=== PATIENT | male | born 1995 | race Caucasian/White ===

== ENCOUNTER 2018-04-08 20:24 | Observation (INO) | payer BC, OTHER ==
[~2018-04-08] VITALS: Ht 190.5 cm; Wt 116.0 kg
[2018-04-08 20:44] LABS: BASOPHILS % (AUTO) 0 % (0-10); EOSINOPHILS # (AUTO) 0.2 10^3/uL (0.0-0.3); EOSINOPHILS % (AUTO) 2 % (0-10); HEMATOCRIT 42 % (40-54); HEMOGLOBIN 15.1 G/DL (13.3-17.7); LYMPHOCYTES % (AUTO) 22 % (12-44); MEAN CORPUSCULAR HEMOGLOBIN 29 PG (25-34); MEAN CORPUSCULAR HGB CONC 36 G/DL (32-36); MEAN CORPUSCULAR VOLUME 82 FL (80-99); MEAN PLATELET VOLUME 10.1 FL (7.4-10.4); MONOCYTES # (AUTO) 0.9 X 10^3 (0.0-1.0); MONOCYTES % (AUTO) 10 % (0-12); NEUTROPHILS # (AUTO) 6.1 X 10^3 (1.8-7.8); NEUTROPHILS % (AUTO) 67 % (42-75); PLATELET COUNT 353 10^3/uL (130-400); RED BLOOD COUNT 5.16 10^6/uL (4.35-5.85); RED CELL DISTRIBUTION WIDTH 13.3 % (10.0-14.5); WHITE BLOOD COUNT 9.1 10^3/uL (4.3-11.0)
[2018-04-08 20:48] LABS: BILIRUBIN,URINE NEGATIVE (NEGATIVE); CLARITY,URINE SLIGHTLY CLOUDY; COLOR,URINE YELLOW; GLUCOSE, URINE (UA) NEGATIVE (NEGATIVE); KETONES,URINE 2+ (NEGATIVE); LEUKOCYTE ESTERASE ,URINE NEGATIVE (NEGATIVE); NITRITE,URINE NEGATIVE (NEGATIVE); PH,URINE 7 (5-9); PROTEIN,URINE NEGATIVE (NEGATIVE); UROBILINOGEN,URINE 4 MG/DL (NORMAL)
[2018-04-08 21:01] LABS: AMPHETAMINE SCREEN, URINE NEGATIVE (NEGATIVE); BARBITURATE SCREEN URINE NEGATIVE (NEGATIVE); BENZODIAZEPINES SCREEN URINE NEGATIVE (NEGATIVE); CANNABINOID SCREEN, URINE POSITIVE (NEGATIVE); COCAINE SCREEN URINE NEGATIVE (NEGATIVE); METHADONE STAT NEGATIVE (NEGATIVE); METHAMPHETAMINE SCREEN URINE S NEGATIVE (NEGATIVE); OPIATE SCREEN URINE NEGATIVE (NEGATIVE); OXYCODONE STAT NEGATIVE (NEGATIVE); PROPOXYPHENE STAT NEGATIVE (NEGATIVE); TRICYCLIC ANTIDEPRESSANTS SCRE NEGATIVE (NEGATIVE)
[2018-04-08 21:03] LABS: ALANINE AMINOTRANSFERASE 18 U/L (0-55); ALBUMIN 4.4 GM/DL (3.2-4.5); ALKALINE PHOSPHATASE 89 U/L (40-136); BILIRUBIN,TOTAL 0.6 MG/DL (0.1-1.0); BUN/CREATININE RATIO 15; CALCIUM 9.3 MG/DL (8.5-10.1); CARBON DIOXIDE 22 MMOL/L (21-32); CHLORIDE 106 MMOL/L (98-107); CREATININE SERUM 0.85 MG/DL (0.60-1.30); GFR ESTIMATED > 60; GLUCOSE 97 MG/DL (70-105); POTASSIUM 3.6 MMOL/L (3.6-5.0); SALICYLATE < 5.0 MG/DL (5.0-20.0); SODIUM 140 MMOL/L (135-145); TOTAL PROTEIN 7.6 GM/DL (6.4-8.2)
[2018-04-08 21:04] LABS: AMORPHOUS SEDIMENT,UR LARGE AMOR PHOSPHATE /LPF; BACTERIA,URINE NEGATIVE /HPF; RBC,URINE RARE /HPF; WBC,URINE 0-2 /HPF
[2018-04-08 21:05] LABS: ACETAMINOPHEN < 10 UG/ML (10-30)
[2018-04-08] MEDS ORDERED: FAMOTIDINE 20MG/2ML IV (PEPCID) IVP ONE (21:15)
[2018-04-08] MEDS ORDERED: ONDANSETRON 4 MG/2 ML (SDV) Z0FRAN IVP ONE (21:15)
[2018-04-08 21:22] LABS: TSH (THYROID ANALYZER) 0.91 UIU/ML (0.35-4.94)
--- NOTE | 2018-04-08 21:39 | ED Psychosocial ---
General Chief Complaint: Suicidal Ideation Risk Stated Complaint: OVERDOSE Nursing Triage Note: PT BROUHGT IN BY EMS WITH COMPLAINT OF SUICIDAL ATTEMPT. PT TOOK APPROXIMATELY 30-60 ZOLOFTS STARTING AT 1830 AND TOOK THEM AT INTERVALS. PT STATES HE HAS HAD THOUGHTS, BUT DECIDED TO KILL HIMSELF JACLYN AFTER GIRLFRIEND BROKE UP WITH HIM. PT STATES HE DOES HAVE PRIOR SUICIDE ATTEMPT. Source: patient, EMS Exam Limitations: no limitations History of Present Illness Date Seen by Provider: Apr 08, 2018 Time Seen by Provider: 20:26 Initial Comments This 22-year-old young man presents to the emergency room via EMS from a local hotel where he was staying on a business trip. He is from [place]. Patient has been struggling with depression and had a breakup with his girlfriend jaclyn. He then decided to overdose on his sertraline with intent to kill himself. EMS estimated he took somewhere between 30 and 60 tablets that were 50 mg strength. Ingestion started around 18:30 and continued in intervals until EMS arrived. Patient's girlfriend notified his sister who then apparently somehow notified emergency services. Patient admits to depression and intent to harm himself with the medications. He reports one prior episode of overdose when he was younger. He vomited and did not seek help when he overdosed that time. Vital signs were stable according to EMS. Patient is alert and oriented. He denies any other drug or alcohol use. He complains of minor stomach upset. Poison control was contacted by EMS. IV fluids were initiated based on the recommendations. EKG showed no gross abnormalities. Allergies and Home Medications Allergies Coded Allergies: No Known Drug Allergies (Unverified , 04/08/18) Patient Home Medication List Home Medication List Reviewed: Yes Review of Systems Constitutional: no symptoms reported EENTM: no symptoms reported Respiratory: no symptoms reported Cardiovascular: no symptoms reported Gastrointestinal: see HPI Genitourinary: no symptoms reported Musculoskeletal: no symptoms reported Skin: no symptoms reported Psychiatric/Neurological: See HPI Past Bcpanak-Fbxrfg-Yrqxiu Hx Patient Social History Alcohol Use: Occasionally Uses Recreational Drug Use: Yes Drug of Choice: MARIJUANA Smoking Status: Current Everyday Smoker Type Used: Cigarettes Recent Foreign Travel: No Contact w/Someone Who Travel: No Recent Infectious Disease Expo: No Recent Hopitalizations: No Physical Abuse: No Sexual Abuse: No Mistreated: No Fear: No Immunizations Up To Date Tetanus Booster (TDap): Unknown PED Vaccines UTD: Yes Seasonal Allergies Seasonal Allergies: No Past Medical History Surgeries: No Respiratory: Yes Asthma Cardiac: No Neurological: No Genitourinary: No Gastrointestinal: No Musculoskeletal: No Endocrine: No HEENT: No Cancer: No Psychosocial: Yes Depression Integumentary: No Blood Disorders: No Physical Exam Vital Signs - First Documented 04/08/18 20:26 Temp 98.0 Pulse 85 Resp 20 B/P (MAP) 138/87 (104) Pulse Ox 99 O2 Delivery Room Air Capillary Refill : Less Than 3 Seconds Height, Weight, BMI Height: 6'3.00" Weight: 240lbs. oz. 108.942014vy; BMI Method:Stated General Appearance: WD/WN, no apparent distress HEENT: PERRL/EOMI, normal ENT inspection, pharynx normal Neck: normal inspection Respiratory: lungs clear, normal breath sounds, no respiratory distress, no accessory muscle use Cardiovascular: regular rate, rhythm, no edema, no murmur Gastrointestinal: normal bowel sounds, non tender, soft Extremities: normal inspection, no pedal edema Neurologic/Psychiatric: call person II-XII nml as tested, alert, normal mood/affect, oriented x 3, other (mood depressed, admits to suicidal ideation) Appearance/Memory: appropriate appearance, appropriate insight Behavior/Eye Contact: cooperative, avoids eye contact Thoughts/Hallucinations: no apparent hallucination Skin: normal color, warm/dry Progress/Results/Core Measures Results/Orders Lab Results Laboratory Tests Test 04/08/18 20:34 04/08/18 20:42 Range/Units White Blood Count 9.1 4.3-11.0 10^3/uL Red Blood Count 5.16 4.35-5.85 10^6/uL Hemoglobin 15.1 13.3-17.7 G/DL Hematocrit 42 40-54 % Mean Corpuscular Volume 82 80-99 FL Mean Corpuscular Hemoglobin 29 25-34 PG Mean Corpuscular Hemoglobin Concent 36 32-36 G/DL Red Cell Distribution Width 13.3 10.0-14.5 % Platelet Count 353 130-400 10^3/uL Mean Platelet Volume 10.1 7.4-10.4 FL Neutrophils (%) (Auto) 67 42-75 % Lymphocytes (%) (Auto) 22 12-44 % Monocytes (%) (Auto) 10 0-12 % Eosinophils (%) (Auto) 2 0-10 % Basophils (%) (Auto) 0 0-10 % Neutrophils # (Auto) 6.1 1.8-7.8 X 10^3 Lymphocytes # (Auto) 2.0 1.0-4.0 X 10^3 Monocytes # (Auto) 0.9 0.0-1.0 X 10^3 Eosinophils # (Auto) 0.2 0.0-0.3 10^3/uL Basophils # (Auto) 0.0 0.0-0.1 10^3/uL Sodium Level 140 135-145 MMOL/L Potassium Level 3.6 3.6-5.0 MMOL/L Chloride Level 106 98-107 MMOL/L Carbon Dioxide Level 22 21-32 MMOL/L Anion Gap 12 5-14 MMOL/L Blood Urea Nitrogen 13 7-18 MG/DL Creatinine 0.85 0.60-1.30 MG/DL Estimat Glomerular Filtration Rate > 60 BUN/Creatinine Ratio 15 Glucose Level 97 70-105 MG/DL Calcium Level 9.3 8.5-10.1 MG/DL Corrected Calcium 9.0 8.5-10.1 MG/DL Magnesium Level 2.0 1.8-2.4 MG/DL Total Bilirubin 0.6 0.1-1.0 MG/DL Aspartate Amino Transf (AST/SGOT) 17 5-34 U/L Alanine Aminotransferase (ALT/SGPT) 18 0-55 U/L Alkaline Phosphatase 89 40-136 U/L Total Protein 7.6 6.4-8.2 GM/DL Albumin 4.4 3.2-4.5 GM/DL TSH [place] Testing 0.91 0.35-4.94 UIU/ML Salicylates Level < 5.0 L 5.0-20.0 MG/DL Acetaminophen Level < 10 L 10-30 UG/ML Serum Alcohol < 10 <10 MG/DL Urine Color YELLOW Urine Clarity SLIGHTLY CLOUDY Urine pH 7 5-9 Urine Specific [place] 1.010 L 1.016-1.022 Urine Protein NEGATIVE NEGATIVE Urine Glucose (UA) NEGATIVE NEGATIVE Urine Ketones 2+ H NEGATIVE Urine Nitrite NEGATIVE NEGATIVE Urine Bilirubin NEGATIVE NEGATIVE Urine Urobilinogen 4 H NORMAL MG/DL Urine Leukocyte Esterase NEGATIVE NEGATIVE Urine RBC (Auto) NEGATIVE NEGATIVE Urine RBC RARE /HPF Urine WBC 0-2 /HPF Urine Crystals PRESENT H /LPF Urine Amorphous Sediment LARGE [place]SON PHOSPHATE H /LPF Urine Bacteria NEGATIVE /HPF Urine Casts NONE /LPF Urine Mucus MODERATE H /LPF Urine Culture Indicated NO Urine Opiates Screen NEGATIVE NEGATIVE Urine Oxycodone Screen NEGATIVE NEGATIVE Urine Methadone Screen NEGATIVE NEGATIVE Urine Propoxyphene Screen NEGATIVE NEGATIVE Urine Barbiturates Screen NEGATIVE NEGATIVE Ur Tricyclic Antidepressants Screen NEGATIVE NEGATIVE Urine Phencyclidine Screen NEGATIVE NEGATIVE Urine Amphetamines Screen NEGATIVE NEGATIVE Urine Methamphetamines Screen NEGATIVE NEGATIVE Urine Benzodiazepines Screen NEGATIVE NEGATIVE Urine Cocaine Screen NEGATIVE NEGATIVE Urine Cannabinoids Screen POSITIVE H NEGATIVE My Orders Orders - PATRICK MCLAUGHLIN MD Acetaminophen (04/08/18 20:31) Alcohol (04/08/18 20:31) Cbc With Automated Diff (04/08/18 20:31) Comprehensive Metabolic Panel (04/08/18 20:31) Drug Screen Stat (Urine) (04/08/18 20:31) Magnesium (04/08/18 20:31) Salicylate (04/08/18 20:31) Thyroid Analyzer (04/08/18 20:31) Ua Culture If Indicated (04/08/18 20:31) Saline Lock/Iv-Start (04/08/18 20:31) Ekg Tracing (04/08/18 20:31) Monitor-Rhythm Ecg Trace Only (04/08/18 20:31) Ondansetron Injection (Zofran Injectio (04/08/18 21:15) Famotidine Injection (Pepcid Injection) (04/08/18 21:15) Medications Given in ED Current Medications Medications Dose Ordered Sig/Gayle Route Start Time Stop Time Status Last Admin Dose Admin Famotidine 20 mg ONCE ONCE IVP 04/08/18 21:15 04/08/18 21:16 DC 04/08/18 21:15 20 MG Ondansetron HCl 8 mg ONCE ONCE IVP 04/08/18 21:15 04/08/18 21:16 DC 04/08/18 21:15 8 MG Vital Signs/I&O 04/08/18 20:26 Temp 98.0 Pulse 85 Resp 20 B/P (MAP) 138/87 (104) Pulse Ox 99 O2 Delivery Room Air Blood Pressure Mean: 104 Progress Progress Note : Progress Note Patient was seen and assessed for overdose. Labs were unremarkable. EMS had contacted poison control who also contacted our nursing staff. Recommendations were for a 6-8 hour observation period. Risks include serotonin syndrome. We are to monitor for EKG or rhythm abnormalities. If QTC becomes greater than 500 ms, magnesium 1-2 g IV may be given. For QRS prolongation greater than 100 ms we can consider giving sodium bicarbonate 2-3 mEq per kilogram. Electrolyte abnormality should be corrected. Seizure activity should be initially treated with benzodiazepines. Case was discussed with Dr. Hinojosa who agrees to admission. A packet of information was provided by poison control and placed on the chart. A liter of IV normal saline was completed as started by EMS. Zofran and Pepcid was given for upset stomach. Initial ECG Impression Date: Apr 08, 2018 Initial ECG Impression Time: 20:47 Initial ECG Rate: 75 Initial ECG Rhythm: Normal Sinus Initial ECG Intervals: Normal Initial ECG Impression: Normal Comment Normal sinus rhythm with no ST elevation or depression. No abnormal intervals or axis deviation. Departure Communication (Admissions) Time/Spoke to Admitting Phy: 21:20 Dr. Hinojosa Impression Primary Impression: Overdose of medication Qualified Codes: T50.902A - Poisoning by unspecified drugs, medicaments and biological substances, intentional self-harm, initial encounter Additional Impressions: Suicidal ideation Depression Qualified Codes: F32.9 - Major depressive disorder, single episode, unspecified Nausea Disposition: ADMITTED INPATIENT Condition: Stable (ERASED) Admissions Decision to Admit Reason: Admit from ER (General) Decision to Admit/Date: Apr 08, 2018 Time/Decision to Admit Time: 20:30 Departure-Patient Inst. Referrals: UNKNOWN (PCP/Family) Primary Care Physician PATRICK MCLAUGHLIN MD Apr 08, 2018 21:38
[2018-04-09] VITALS (10 sets, daily range): BP systolic 116–155; BP diastolic 68–86
[2018-04-09] MEDS ORDERED: NS IV 1000 ML 1,000 ML ONE (00:55)
[2018-04-09] MEDS: NS IV 1000 ML 1,000 ML IV SCH ×2 (00:55→06:59)
[2018-04-09] MEDS ORDERED: LORazepam INJ 2 MG/ML (ATIVAN) VIAL IV PRN (01:15)
[2018-04-09] MEDS ORDERED: ONDANSETRON 4 MG/2 ML (SDV) Z0FRAN IV PRN (01:15)
[2018-04-09] MEDS ORDERED: SERT50TA9 PO (04:03)
[2018-04-09 06:53] LABS: BASOPHILS % (AUTO) 0 % (0-10); EOSINOPHILS # (AUTO) 0.2 10^3/uL (0.0-0.3); EOSINOPHILS % (AUTO) 2 % (0-10); HEMATOCRIT 38 % (40-54); HEMOGLOBIN 13.6 G/DL (13.3-17.7); LYMPHOCYTES # (AUTO) 2.6 X 10^3 (1.0-4.0); LYMPHOCYTES % (AUTO) 28 % (12-44); MEAN CORPUSCULAR HEMOGLOBIN 30 PG (25-34); MEAN CORPUSCULAR HGB CONC 36 G/DL (32-36); MEAN CORPUSCULAR VOLUME 82 FL (80-99); MEAN PLATELET VOLUME 10.2 FL (7.4-10.4); MONOCYTES # (AUTO) 0.9 X 10^3 (0.0-1.0); MONOCYTES % (AUTO) 10 % (0-12); NEUTROPHILS # (AUTO) 5.5 X 10^3 (1.8-7.8); NEUTROPHILS % (AUTO) 60 % (42-75); PLATELET COUNT 336 10^3/uL (130-400); RED BLOOD COUNT 4.59 10^6/uL (4.35-5.85); RED CELL DISTRIBUTION WIDTH 13.3 % (10.0-14.5); WHITE BLOOD COUNT 9.1 10^3/uL (4.3-11.0)
[2018-04-09 07:15] LABS: ALANINE AMINOTRANSFERASE 15 U/L (0-55); ALBUMIN 3.8 GM/DL (3.2-4.5); ALKALINE PHOSPHATASE 81 U/L (40-136); BILIRUBIN,TOTAL 0.8 MG/DL (0.1-1.0); BUN/CREATININE RATIO 13; CALCIUM 8.7 MG/DL (8.5-10.1); CARBON DIOXIDE 21 MMOL/L (21-32); CHLORIDE 108 MMOL/L (98-107); CREATININE SERUM 0.77 MG/DL (0.60-1.30); GFR ESTIMATED > 60; GLUCOSE 93 MG/DL (70-105); MAGNESIUM 1.7 MG/DL (1.8-2.4); POTASSIUM 3.6 MMOL/L (3.6-5.0); SODIUM 140 MMOL/L (135-145); TOTAL PROTEIN 6.5 GM/DL (6.4-8.2)
[2018-04-09] MEDS ORDERED: FLU QUADRIvalent (5+ YOA) 2018-2019 (AFLURIA) 0.5 ML IM ONE (07:15)
[2018-04-09] MEDS ORDERED: FAMOTIDINE 20MG/2ML IV (PEPCID) IV SCH (09:00)
--- NOTE | 2018-04-09 10:41 | Short Stay Summary-Hospitalist ---
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 He states that he has a history of depression and previous attempts at self harm but had been on Zoloft recently. His girlfriend broke up with him prompting him to take between 30-60 tabs of 50mg Zoloft last night. He told the girlfriend about this and his intent to kill himself who contacted EMS. He now states he is doing well and has no complaints. He denies any thoughts of self harm currently. He states his mom is flying in to this morning with plans to drive down and bring him home. Source: patient Date Seen 04/09/18 Time Seen by a Provider: 10:40 Attending Physician Ashley Hinojosa MD PCP No,Local Physician Referring Physician Date of Admission Apr 08, 2018 at 21:20 Home Medications & Allergies Home Medications Reviewed patient Home Medication Reconciliation performed by pharmacy medication reconciliations boiler service technician and/or nursing. Patients Allergies have been reviewed. Allergies Allergies Coded Allergies No Known Drug Allergies (Olaxcpnekz04/7/18) Past Xhmwebz-Htfkbg-Vktrwo Hx Past Med/Social Hx: Reviewed Nursing Past Med/Soc Hx Patient Social History Marrital Status: single Employed/Student: employed Alcohol Use: Occasionally Uses Recreational Drug Use: Yes Drug of Choice: MARIJUANA Smoking Status: Current Everyday Smoker Cigaretts per day: 10 Type Used: Cigarettes Physical Abuse Screen: No Sexual Abuse: No Recent Foreign Travel: No Contact w/other who traveled: No Recent Hopitalizations: No Recent Infectious Disease Expo: No Immunizations Up To Date Tetanus Booster (TDap): Unknown Pediatric: Yes Seasonal Allergies Seasonal Allergies: No Past Medical History Currently Using CPAP: No Currently Using BIPAP: No Psychosocial: Depression History of Blood Disorders: No Family History Reviewed and Corrections made Patient reports no known family medical history. No Pertinent Family Hx Review of Systems Constitutional: No chills, No fever EENTM: No blurred vision, No double vision, No nose congestion, No throat pain Respiratory: No cough, No dyspnea on exertion, No short of breath Cardiovascular: No chest pain, No edema, No palpitations Gastrointestinal: No abdominal pain, No constipation, No diarrhea, No nausea, No vomiting Genitourinary: No dysuria, No frequency Musculoskeletal: No joint pain, No muscle pain Skin: No lesions, No rash Psychiatric/Neurological: See HPI Physical Exam Physical Exam Vital Signs Vital Signs - First Documented 04/08/18 20:26 Temp 98.0 Pulse 85 Resp 20 B/P (MAP) 138/87 (104) Pulse Ox 99 O2 Delivery Room Air Capillary Refill : Less Than 3 Seconds Height, Weight, BMI Height: 6'3.00" Weight: 255lbs. 12.8oz. 116.080356ye; 32.0 BMI Method:Stated General Appearance: No Apparent Distress, WD/WN HEENT: PERRL/EOMI, Moist Mucous Membranes Neck: Non Tender, Supple Respiratory: Lungs Clear, No Respiratory Distress Cardiovascular: Regular Rate, Rhythm, No Murmur Gastrointestinal: Normal Bowel Sounds, Non Tender, Soft Extremity: Normal Capillary Refill, No Calf Tenderness Neurologic/Psychiatric: Alert, Oriented x3, Normal Mood/Affect Skin: Normal Color, Warm/Dry Results Results/Procedures Labs Laboratory Tests 04/08/18 20:34 04/09/18 06:26 Patient resulted labs reviewed. Short Stay Diagnosis Discharge Diagnosis-Short Stay Admission Diagnosis Zoloft Overdose Final Discharge Diagnosis Zoloft Overdose Conclusion Plan Zoloft Overdose with intent for self harm Save line contacted to assist with screening Agree that patient is safe for discharge with outpatient follow up Denies current ideation at this time Mom arrived and willing to take patient home under her supervision and to arrange outpatient follow up in [place] to home under her supervision with two friend as well Clinical Quality Measures DVT/VTE Risk/Contraindication: Risk Factor Score Per Nursin RFS Level Per Nursing on Admit: 2=Moderate ASHLEY HINOJOSA MD Apr 09, 2018 10:41
== END 2018-04-09 15:49 | disposition home or self-care (01) ==
LOC: ER 20:26 → ICU 21:20 → 4TH 23:39
PROVIDERS: ADMIT Family Medicine; ATTEND Family Medicine
DX: T43.222A Poisoning by selective serotonin reuptake inhibitors, intentional self-harm, initial encounter (principal); R45.851 Suicidal ideations; F32.9 Major depressive disorder, single episode, unspecified; F17.210 Nicotine dependence, cigarettes, uncomplicated; F12.90 Cannabis use, unspecified, uncomplicated
CPT/HCPCS: 36415; 80053; 80306; 80320; 80329; 81000; 83735; 84443; 85025; 93005; 93041